=== PATIENT | male | born 1995 | race Caucasian/White ===

== ENCOUNTER 2017-06-07 12:42 | Emergency (ER) | payer OTHER ==
[2017-06-07] MEDS ORDERED: Acetaminophen TAB* 325 MG PO ONE (13:14)
--- NOTE | 2017-06-07 13:23 | UC ---
Marv Mao Rebecca, scribed for Jaylin Almaguer MD on 06/07/17 at 1317 . Cardiac HPI - HPI Summary HPI Summary: Pt is a 22 y/o M who presents to [facility] c/o CP. Pain began yesterday and has been intermittent since onset over the last 24 hours. Pain is located on the left anterior chest without radiation to the back, armpit, LLE or jaw and woke him up from sleep last night. Sx aggravated by movement, direct palpation and ROM. pain is alleviated by nothing and has not been treated with any pain medication. Denies SOB, diaphoresis, nausea and back pain. Pt usually experiences a few episodes of chest pain per month that lasts for about an hour. Does not recall any recent, strenuous exercise and confirms he has been eating and drinking well. 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 Pt intermittently picks up heavy items. 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 Pt on coumadin. Called his head wood grinder who was not under the impression that this was cardiac-related , though advised being evaluated. PSHx aortic valve replacement in 2009 at [facility]. Is on 5 mg Coumadin daily with his levels checked last week. Takes 81 mg ASA daily. Pt's medications reviewed this visit - History of Current Complaint Stated Complaint: CHEST PAIN Time Seen by Provider: 06/07/17 12:50 Hx Obtained From: Patient Onset/Duration: Lasting Days - 1 day, Still Present Timing: Intermittent Episodes Lasting: Chest Pain Location: Left Anterior Aggravating Factor(s): Movement Alleviating Factor(s): Nothing Associated Signs & Symptoms: Positive: Negative - Allergy/Home Medications Allergies/Adverse Reactions: Allergies Allergy/AdvReac Type Severity Reaction Status Date / Time ibuprofen Allergy Bleeding Verified 06/07/17 13:01 Vitamin K Allergy See Comment Uncoded 06/07/17 13:00 PMH/Surg Hx/FS Hx/Imm Hx Previously Healthy: Yes Cardiovascular History: Other Other Cardiovascular History: Aortic stenosis Respiratory History: Asthma - Surgical History Surgical History: Yes Surgery Procedure, Year, and Place: AVR 2009=aortic valve replacement - Family History Known Family History: Positive: Cardiac Disease - Social History Occupation: Employed Full-time Lives: With Family Alcohol Use: None Substance Use Type: None Smoking Status (MU): Never Smoked Tobacco - Immunization History Vaccination Up to Date: Yes Review of Systems Constitutional: Negative Skin: Negative Eyes: Negative ENT: Negative Respiratory: Negative Cardiovascular: Chest Pain Gastrointestinal: Negative Genitourinary: Negative Motor: Negative Neurovascular: Negative Musculoskeletal: Negative Neurological: Negative Psychological: Negative All Other Systems Reviewed And Are Negative: Yes Physical Exam Triage Information Reviewed: Yes Appearance: Well-Appearing, No Pain Distress, Well-Nourished Vital Signs Reviewed: Yes Eye Exam: Normal Eyes: Positive: Conjunctiva Clear ENT Exam: Normal ENT: Positive: Normal ENT inspection, Hearing grossly normal, Pharynx normal, TMs normal Dental Exam: Normal Neck exam: Normal Neck: Positive: Supple, Nontender, No Lymphadenopathy Respiratory Exam: Normal Respiratory: Positive: Chest non-tender, Lungs clear, Normal breath sounds, No respiratory distress, No accessory muscle use, Other: - Pt with point tenderness reproducible pain left sternal border nipple line pt reports same pain Pain reproduced wih elbow extension against resistance, posterior shoulder extension and movement of chest Cardiovascular Exam: Normal Cardiovascular: Positive: RRR, Brisk Capillary Refill. Negative: No Murmur - Pt with prominent systolic click Abdominal Exam: Normal Abdomen Description: Positive: Nontender, No Organomegaly, Soft Bowel Sounds: Positive: Present Musculoskeletal Exam: Normal Musculoskeletal: Positive: Strength Intact Neurological Exam: Normal Psychological Exam: Normal Skin Exam: Normal Diagnostics - EKG Cardiac Rate: NL - 92 bpm Cardiac Rhythm: Sinus: Normal - Done at 1251. No acute ST T wave changes, no change when compared with EKG from January 2013. - Assessment/Plan Course Of Treatment: Patients medication reviewed this visit. 127/85 100% HR92 VS not entered in triage -reviewed on bediside monitor. Pt with reproducible chest wall pain left costosternal border. Pt with clear BS no disstress no changes to EKG and stable VS. recommend APAP. heat. stretch. work note. strict return precautions. pt comfortable and in agreement with plan - Clinical Impression Provider Diagnoses: chest wall pain costochondritis Discharge - Sign-Out/Discharge Documenting (check all that apply): Discharge - Discharge Plan Condition: Stable Disposition: HOME Patient Education Materials: Costochondritis (ED), Chest Wall Pain (ED) Forms: *Work Release Referrals: Dalton Ho MD [Primary Care Provider] - Additional Instructions: - Okay to take Tylenol every 6- 8 hours as needed for discomfort - Apply moist heat to your chest wall, 2-3 times a day - slow, gentle stretching exercises are important - Avoid heavy lifting and carrying and excessively heavy back pack - call your doctor, return here, or go to the emergency department with questions or concerns - Billing Disposition and Condition Condition: STABLE Disposition: HOME The documentation as recorded by the Marv jaeger Rebecca accurately reflects the service I personally performed and the decisions made by me, Jaylin Almaguer MD.
== END 2017-06-07 13:30 | disposition home or self-care (01) ==
LOC: UCEAST 12:42
DX: R07.89 Other chest pain (principal); M94.0 Chondrocostal junction syndrome [Tietze]; Z88.6 Allergy status to analgesic agent; Z88.8 Allergy status to other drugs, medicaments and biological substances
CPT/HCPCS: 93005; 99212; A9270-GY; G0463